=== PATIENT | female | born 1975 | race Two or more races ===

== ENCOUNTER 2022-06-14 19:15 | Emergency (ER) | payer OTHER ==
[~2022-06-14] VITALS: Ht 170.2 cm; Wt 63.5 kg
[2022-06-15] MEDS ORDERED: CIPRO500 MG PO (03:27)
[2022-06-15] MEDS ORDERED: KETO10TA2 PO (03:27)
== END 2022-06-15 04:20 ==
LOC: ER 19:15
DX: R10.31 Right lower quadrant pain (principal); N39.0 Urinary tract infection, site not specified; Z88.5 Allergy status to narcotic agent